=== PATIENT | female | born 1995 | race Caucasian/White ===

== ENCOUNTER 2020-01-25 15:00 | Inpatient (IN) | payer BC, OTHER ==
[2020-01-25] MEDS ORDERED: Sodium Chloride 0.9% 2.5 ML Syringe FLUSH PRN (16:30)
[2020-01-25] MEDS ORDERED: Sodium Chloride 0.9% 10 ML SDV IV PRN (16:30)
[2020-01-25] MEDS ORDERED: Nalbuphine 10 MG/1 ML Vial IVPUSH PRN (16:30)
[2020-01-25] MEDS ORDERED: Sodium Chloride 0.9% 10 ML Syringe FLUSH PRN (16:30)
[2020-01-25] MEDS ORDERED: Oxytocin/0.9 % Sodium Chloride 30 UNIT/500 ML BAG IV SCH ×2 (16:30→16:45)
[2020-01-25] MEDS ORDERED: Butorphanol 1 MG/ML SDV IVPUSH PRN (16:30)
[2020-01-25] MEDS ORDERED: Water For Irrigation,Sterile 1,000 ML Container IRR PRN (16:30)
[2020-01-25] MEDS ORDERED: Misoprostol 200 MCG Tab PO PRN (16:30)
[2020-01-25] MEDS ORDERED: Ondansetron 4 MG/2 ML SDV IVPUSH PRN (16:30)
[2020-01-25] MEDS ORDERED: Carboprost Tromethamine 250 MCG/1 ML Amp IM PRN (16:30)
[2020-01-25] MEDS ORDERED: Lidocaine 1% 50 ML MDV INJECT PRN (16:30)
[2020-01-25] MEDS ORDERED: Methylergonovine 0.2 MG/1 ML Amp IM PRN (16:30)
[2020-01-25] MEDS ORDERED: Tranexamic Acid 1,000 MG in Sodium Chloride 0.9% 100 ML IV PRN (16:30)
[2020-01-25 17:45] LABS: BLOOD UREA NITROGEN,BUN 14 mg/dL (7.0-18.0); CARBON DIOXIDE,CO2 18.2 mmol/L (21.0-32.0); CHLORIDE,CL 104 mmol/L (98-107); GLUCOSE RANDOM 111 mg/dL (74-106); POTASSIUM,K 3.7 mmol/L (3.5-5.1); SODIUM,NA 138 mmol/L (136-145)
[2020-01-25] MEDS: Lactated Ringers 1,000 ML IV SCH (17:59)
[2020-01-26] MEDS: Misoprostol 50 MCG (1/2 of 100 MCG) Tab VAG PRN ×2 (00:28→04:26)
[2020-01-26] MEDS ORDERED: Ropivacaine HCl/PF 100 ML ONE (07:05)
[2020-01-26] MEDS ORDERED: fentaNYL 100 MCG/2 ML SDV ONE (07:05)
--- NOTE | 2020-01-26 07:42 | PCM.PREANE ---
Preanesthetic Assessment - Procedure Proposed Procedure: MIR - Anesthesia/Transfusion/Family Hx Anesthesia History: Prior Anesthesia Without Reaction (Prior well-functioning epidural without complications, GA for wisdom teeth without anesthetic complications) Family History of Anesthesia Reaction: No Transfusion History: No Prior Transfusion(s) Additional History: PIH with current - Review of Systems General: No Symptoms Pulmonary: No Symptoms Cardiovascular: No Symptoms Gastrointestinal: No Symptoms Neurological: No Symptoms Other: Reports: None - Physical Assessment NPO Status Date: 01/25/20 (NPO except clear liquids following epidural) NPO Status Time: 19:00 (Last solid food 01/24 at 1900) Height: 1.7 m Weight: 78.471 kg ASA Class: 2 Mental Status: Alert & Oriented x3 Airway Class: Mallampati = 1 Dentition: Reports: Normal Dentition Thyro-Mental Finger Breadths: 3 Mouth Opening Finger Breadths: 4 ROM/Head Extension: Full Lungs: Normal Respiratory Effort Cardiovascular: Regular Rate, Regular Rhythm - Lab Values: Laboratory Last Values WBC 9.62 K/uL (4.0-11.0) 01/25/20 17:09 RBC 4.51 M/uL (4.30-5.90) 01/25/20 17:09 Hgb 13.8 g/dL (12.0-16.0) 01/25/20 17:09 Hct 41.1 % (36.0-46.0) 01/25/20 17:09 MCV 91.1 fL (80.0-98.0) 01/25/20 17:09 MCH 30.6 pg (27.0-32.0) 01/25/20 17:09 MCHC 33.6 g/dL (31.0-37.0) 01/25/20 17:09 RDW Std Deviation 44.2 fl (28.0-62.0) 01/25/20 17:09 RDW Coeff of Jessy 13 % (11.0-15.0) 01/25/20 17:09 Plt Count 183 K/uL (150-400) 01/25/20 17:09 MPV 12.00 fL (7.40-12.00) 01/25/20 17:09 Nucleated RBC % 0.0 /100WBC 01/25/20 17:09 Nucleated RBCs # 0 K/uL 01/25/20 17:09 Sodium 138 mmol/L (136-145) 01/25/20 17:09 Potassium 3.7 mmol/L (3.5-5.1) 01/25/20 17:09 Chloride 104 mmol/L (98-107) 01/25/20 17:09 Carbon Dioxide 18.2 mmol/L (21.0-32.0) L 01/25/20 17:09 BUN 14 mg/dL (7.0-18.0) 01/25/20 17:09 Creatinine 0.8 mg/dL (0.6-1.0) 01/25/20 17:09 Est Cr Clr Drug Dosing TNP 01/25/20 17:09 Estimated GFR (MDRD) > 60.0 ml/min 01/25/20 17:09 Glucose 111 mg/dL (74-106) H 01/25/20 17:09 Uric Acid 5.1 mg/dL (2.6-7.2) 01/25/20 17:09 Calcium 9.3 mg/dL (8.5-10.1) 01/25/20 17:09 Total Bilirubin 0.4 mg/dL (0.2-1.0) 01/25/20 17:09 AST 20 IU/L (15-37) 01/25/20 17:09 ALT 22 IU/L (14-63) 01/25/20 17:09 Alkaline Phosphatase 210 U/L (46-116) H 01/25/20 17:09 Total Protein 6.6 g/dL (6.4-8.2) 01/25/20 17:09 Albumin 3.0 g/dL (3.4-5.0) L 01/25/20 17:09 Globulin 3.6 g/dL (2.6-4.0) 01/25/20 17:09 Albumin/Globulin Ratio 0.8 (0.9-1.6) L 01/25/20 17:09 Urine Color YELLOW 01/25/20 17:30 Urine Appearance CLEAR 01/25/20 17:30 Urine pH 6.0 (5.0-8.0) 01/25/20 17:30 Ur Specific [place] 1.025 (1.001-1.035) 01/25/20 17:30 Urine Protein NEGATIVE mg/dL (NEGATIVE) 01/25/20 17:30 Urine Glucose (UA) 100 mg/dL (NEGATIVE) H 01/25/20 17:30 Urine Ketones NEGATIVE mg/dL (NEGATIVE) 01/25/20 17:30 Urine Occult Blood NEGATIVE (NEGATIVE) 01/25/20 17:30 Urine Nitrite NEGATIVE (NEGATIVE) 01/25/20 17:30 Urine Bilirubin NEGATIVE (NEGATIVE) 01/25/20 17:30 Urine Urobilinogen 0.2 EU/dL (<2.0) 01/25/20 17:30 Ur Leukocyte Esterase NEGATIVE (NEGATIVE) 01/25/20 17:30 Urine RBC 0-1 (0-2/HPF) 01/25/20 17:30 Urine WBC 0-1 (0-5/HPF) 01/25/20 17:30 Ur Epithelial Cells RARE (NONE-FEW) 01/25/20 17:30 Urine Bacteria RARE (NEGATIVE) 01/25/20 17:30 Ur Random Creatinine 110.7 mg/dL 01/25/20 17:30 U Random Total Protein 28.3 mg/dL (<11.9) H 01/25/20 17:30 Protein/Creatinin Ratio 0.3 01/25/20 17:30 SARS-CoV-2 RNA (DORA) NEGATIVE (NEGATIVE) 01/25/20 18:30 Blood Type B POSITIVE 01/25/20 17:09 Antibody Screen NEGATIVE 01/25/20 17:09 - Allergies Allergies/Adverse Reactions: Allergies Allergy/AdvReac Type Severity Reaction Status Date / Time amoxicillin Allergy Hives Verified 01/25/20 17:58 azithromycin [From Zithromax] Allergy Hives Verified 01/25/20 17:58 - Anesthesia Plan Free Text/Narrative:: Plan for MIR. Discussed risks, benefits, alternatives, placement, anesthesia coverage, DECKHAND, and use of epidural vs GA for c. section if need should arise. All questions answered and concerns addressed. 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 OB/BYN History: 2019 Childbirth - Infectious Disease History Infectious Disease History: Reports: None - Past Surgical History Other HEENT Surgeries/Procedures: [place] Teeth Extraction - SUBSTANCE USE Tobacco Use Status *Q: Never Tobacco User Second Hand Smoke Exposure: No Recreational Drug Use History: No - HOME MEDS Home Medications: Home Meds Vit No.124/Iron/Folic [ Vitamin Tablet] 1 tab PO DAILY 01/25/20 [History] - CURRENT (IN HOUSE) MEDS Current Meds: Current Medications Butorphanol Tartrate (Stadol) 1 mg IVPUSH Q1H PRN PRN Reason: Pain Carboprost Tromethamine (Hemabate Ds) 250 mcg IM ASDIRECTED PRN PRN Reason: Post Hemorrhage Oxytocin/Sodium Chloride (Oxytocin 30 Unit/500 Ml-Ns) 30 unit in 500 mls @ 999 mls/hr IV TITRATE MACI Tranexamic Acid 1,000 mg/ (Sodium Chloride) 110 mls @ 660 mls/hr IV ONETIME PRN PRN Reason: Bleeding Lactated Ringer's (Ringers, Lactated) 1,000 mls @ 150 mls/hr IV ASDIRECTED MACI Last Admin: 01/25/20 17:59 Dose: 150 mls/hr Documented by: Oxytocin/Sodium Chloride (Oxytocin 30 Unit/500 Ml-Ns) 30 unit in 500 mls @ 2 mls/hr IV TITRATE MACI; Protocol Last Infusion: 01/25/20 23:44 Dose: 0 munits/min, 0 mls/hr Documented by: Lidocaine HCl (Xylocaine 1%) 50 ml INJECT ONETIME PRN PRN Reason: Laceration repair Methylergonovine Maleate (Methergine) 0.2 mg IM ASDIRECTED PRN PRN Reason: Post Hemorrhage Misoprostol (Cytotec) 200 mcg PO ONETIME PRN PRN Reason: Post Hemorrhage Misoprostol (Cytotec) 25 mcg VAG Q4HR PRN PRN Reason: cervical ripening Last Admin: 01/26/20 04:26 Dose: 25 mcg Documented by: Ondansetron HCl (Zofran) 4 mg IVPUSH Q4H PRN PRN Reason: Nausea/Vomiting Sodium Chloride (Saline Flush) 10 ml FLUSH ASDIRECTED PRN PRN Reason: Keep Vein Open Sodium Chloride (Saline Flush) 2.5 ml FLUSH ASDIRECTED PRN PRN Reason: Keep Vein Open Sodium Chloride (Normal Saline) 10 ml IV ASDIRECTED PRN PRN Reason: IV Use Sterile Water (Sterile Water For Irrigation) 1,000 ml IRR ASDIRECTED PRN PRN Reason: delivery Discontinued Medications Fentanyl (Sublimaze) Confirm Administered Dose 200 mcg .ROUTE .STK-MED ONE Stop: 01/26/20 07:06 Ropivacaine (Naropin 0.2%) Confirm Administered Dose 100 mls @ as directed .ROUTE .STPlastio-MED ONE Stop: 01/26/20 07:06
--- NOTE | 2020-01-26 08:04 | PCM.SN.2 ---
- Free Text/Narrative Note: Anesthesia time [id number] 0643- Bedside with patient and S.O.. Plan for MIR. Discussed risks, benefits, alternatives, placement, anesthesia coverage, CNC TECHNICIAN, and use of epidural vs GA for c. section if need should arise. All questions answered and concerns addressed. 0651- Consent signed with RN witness 0654- Sitting position, "time out" performed, monitors on. Sterile technique employed, prep. with chlorhexidine and sterile drape. Localization with 1% lido. Attempt #1 successful at L3-4. DEBRA with saline at 6cm. 0656- Catheter threaded to 12cm without resistance or paresthesias. Negative to aspiration for both blood and CSF. 0658- Test dose given (negative). 0700- Sterile tegaderm dressing applied, cloth tape to secure. 0724- Cont. epidural drip of 0.2% ropivicaine with 2mcg/ml Fentanyl started at 8ml/hr with CNC TECHNICIAN option of 4 ml Q10 min, hourly lockout of 34ml. Clinician bolus of 6ml given at this time. Pt supine with HOB flat, VIVEK. 0754- Bedside to reassess, level of T7 acheived, pt c/o slight lightheadedness and chest/breathing feel "a little weird, but not short of breath." SBP 115, HR80-90. HOB elevated, epidural rate turned down to 6ml/hr. 0758- reassessed, level regressed to T9, pt reports relief from symptoms, VSS.
[2020-01-26] MEDS: Lactated Ringers 1,000 ML IV SCH (08:11)
--- NOTE | 2020-01-26 12:39 | OR ---
SURGEON: Kayla Osullivan M.D. DATE OF PROCEDURE: 01/26/2020 PREOPERATIVE DIAGNOSES: 1. 38 and 6 weeks' intrauterine . 2. Induction of labor for gestational hypertension. POSTOPERATIVE DIAGNOSES: 1. 38 and 6 weeks' intrauterine . 2. Induction of labor for gestational hypertension. PROCEDURE: Spontaneous vaginal delivery, first-degree midline laceration repaired. ANESTHESIA: Epidural. ESTIMATED BLOOD LOSS: 300 mL. COMPLICATIONS: None known. FINDINGS: Viable male. score of 8 at 1 minute and 9 at 5 minutes. Weight is pending. Spontaneous delivery, intact placenta, 3-vessel cord. DISPOSITION: to nursery, mom to LDRP. PROCEDURE IN DETAIL: Malika is a 24-year-old, G3, P1-0-1-1 at 38 and 6 weeks' gestational age who presented on the evening of 01/25/2020 after being evaluated in clinic and found to have elevated blood pressures in the 140s to 150s/90s. Given term gestation, gestational hypertension, induction of labor had been advised. The patient was admitted, routine labs were drawn as well PIH labs, LFTs, platelets, hemoglobin were stable. No protein in the urine. The patient denied headaches or visual changes. She was initiated on Pitocin, however, did not have much response to this. So after approximately 5 to 6 hours of this, progressed to Cytotec vaginally for 2 doses. At that time before starting that, she was 2 cm, 50% effaced, -3 station. The following morning, she was found to be 3 cm, 70% effaced, -2 station. Pitocin was initiated again. She underwent regional anesthesia in the form of epidural, became more comfortable. Category 1 heart tones. The blood pressures remained stable after epidural, were 120s/60s. Shortly before 10 a.m., amniotomy was performed, clear fluid was drained. She is group B beta strep negative. The patient began to progress more rapidly thereafter, and shortly before noon was found to be 9 cm, quickly progressing to complete, 100% effaced, +2 station. I was called for delivery. The patient was placed in modified dorsal lithotomy position and was prepped and draped in usual aseptic manner. With the next 3 contractions, was able to push, delivered infant's head atraumatically spontaneously, followed by anterior shoulder, posterior shoulder, and remainder of the body without difficulty. The infant's oropharynx and nares were bulb suctioned. Infant was handed off to his mother with attending nursing staff at bedside. After delayed cord was clamped x2 and cut, cord arterial, cord venous, cord blood sampling was obtained. Light pressure was applied. The placenta was delivered spontaneously intact. Vigorous fundal uterine massage was then applied while 30 units of Pitocin was delivered in 500 mL of IV fluid. Upon inspection of cervix, vaginal sidewall, and perineum, there was found to be a first-degree midline laceration repaired in the usual fashion with 0 Vicryl. Uterus remained firm. Hemostasis evident. Sponge count, instrument count, needle count were correct. The patient remained in LDRP. We will monitor blood pressures closely. to nursery. LATOSHA / DESI /[id number]
[2020-01-26] MEDS ORDERED: Witch Hazel Medicated Pads 40/Jar TOP ONE (14:39)
[2020-01-26] MEDS ORDERED: Benzocaine/Menthol 20%-0.5% Spray 78 GM Cannister ONE (14:39)
[2020-01-26] MEDS ORDERED: Witch Hazel Medicated Pads 40/Jar TOP PRN (15:35)
[2020-01-26] MEDS ORDERED: Docusate Sodium 100 MG Cap PO PRN (15:35)
[2020-01-26] MEDS ORDERED: Bisacodyl 10 MG Supp RECTAL PRN (15:35)
[2020-01-26] MEDS ORDERED: Ibuprofen 400 MG Tab PO PRN (15:35)
[2020-01-26] MEDS ORDERED: oxyCODONE 5 MG Tab PO PRN (15:35)
[2020-01-26] MEDS ORDERED: Benzocaine/Menthol 20%-0.5% Spray 78 GM Cannister TOP PRN (15:35)
[2020-01-26] MEDS ORDERED: Acetaminophen 500 MG Tab PO PRN ×2 (15:35)
[2020-01-26] MEDS ORDERED: Lanolin 100% Cream 7 GM Tube TOP PRN (15:35)
[2020-01-26] MEDS ORDERED: Ondansetron 4 MG/2 ML SDV IVPUSH PRN (15:42)
[2020-01-26] MEDS: Ibuprofen 800 MG Tab PO PRN (16:09)
[2020-01-26] MEDS ORDERED: diphenhydrAMINE 25 MG Cap PO STA (16:25)
[2020-01-26] MEDS ORDERED: diphenhydrAMINE 25 MG Cap ONE (16:39)
[2020-01-27] MEDS: Ibuprofen 800 MG Tab PO PRN (07:27)
--- NOTE | 2020-01-27 10:55 | PCM.PNPP ---
- General Info Date of Service: 01/27/20 Subjective Update: Doing well overall, lochia has dissipated signficantly. Denies any headaches or visual changes. Is ambulating without any difficulty and is going well. Functional Status: Reports: Pain Controlled, Tolerating Diet, Ambulating, Urinating - Review of Systems General: Reports: No Symptoms Pulmonary: Reports: No Symptoms Cardiovascular: Reports: No Symptoms Gastrointestinal: Reports: No Symptoms Genitourinary: Reports: No Symptoms Musculoskeletal: Reports: No Symptoms Skin: Reports: No Symptoms Neurological: Reports: No Symptoms Psychiatric: Reports: No Symptoms - General Info Date of Service: 01/27/20 - Patient Data Vital Signs - Most Recent: Last Vital Signs Temp 36.0 C L 01/27/20 07:15 Pulse 92 01/27/20 07:15 Resp 16 01/27/20 07:15 BP 119/59 L 01/27/20 07:15 Pulse Ox 98 01/27/20 07:15 Weight - Most Recent: 78.471 kg I&O - Last 24 Hours: Intake & Output 01/26/20 01/27/20 01/27/20 22:59 06:59 14:59 Output Total 700 Balance -700 Lab Results - Last 24 Hours: Laboratory Results - last 24 hr 01/26/20 01/26/20 01/27/20 Range/Units 12:27 12:27 05:30 Hgb 10.9 L (12.0-16.0) g/dL Hct 32.9 L (36.0-46.0) % Cord ABG pH 7.332 (7.18-7.38) Cord ABG Base Excess -5 (-10--2) Cord VBG pH 7.344 (7.25-7.45) Cord VBG Base Excess -5 (-10--2) Med Orders - Current: Current Medications Acetaminophen (Tylenol Extra Strength) 500 mg PO Q4H PRN PRN Reason: Pain Acetaminophen (Tylenol Extra Strength) 1,000 mg PO Q4H PRN PRN Reason: Pain Last Admin: 01/27/20 07:26 Dose: 1,000 mg Documented by: Benzocaine/Menthol (Dermoplast Pain Relief 20%-0.5% [place]) 78 gm TOP ASDIRECTED PRN PRN Reason: Perineal Comfort Measure Last Admin: 01/26/20 15:00 Dose: 1 can Documented by: Bisacodyl (Dulcolax) 10 mg RECTAL ONETIME PRN PRN Reason: Constipation Butorphanol Tartrate (Stadol) 1 mg IVPUSH Q1H PRN PRN Reason: Pain Docusate Sodium (Colace) 100 mg PO BID PRN PRN Reason: Constipation Emollient Ointment (Lansinoh Hpa) 0 gm TOP ASDIRECTED PRN PRN Reason: Sore Nipples Oxytocin/Sodium Chloride (Oxytocin 30 Unit/500 Ml-Ns) 30 unit in 500 mls @ 999 mls/hr IV TITRATE MACI Tranexamic Acid 1,000 mg/ (Sodium Chloride) 110 mls @ 660 mls/hr IV ONETIME PRN PRN Reason: Bleeding Lactated Ringer's (Ringers, Lactated) 1,000 mls @ 150 mls/hr IV ASDIRECTED MACI Last Infusion: 01/26/20 12:31 Dose: 0 mls/hr Documented by: Oxytocin/Sodium Chloride (Oxytocin 30 Unit/500 Ml-Ns) 30 unit in 500 mls @ 2 mls/hr IV TITRATE MACI; Protocol Last Infusion: 01/26/20 12:31 Dose: 999 munits/min, 999 mls/hr Documented by: Ibuprofen (Motrin) 400 mg PO Q4H PRN PRN Reason: Pain Ibuprofen (Motrin) 800 mg PO Q4H PRN PRN Reason: Pain Last Admin: 01/27/20 07:27 Dose: 800 mg Documented by: Lidocaine HCl (Xylocaine 1%) 50 ml INJECT ONETIME PRN PRN Reason: Laceration repair Methylergonovine Maleate (Methergine) 0.2 mg IM ASDIRECTED PRN PRN Reason: Post Hemorrhage Misoprostol (Cytotec) 200 mcg PO ONETIME PRN PRN Reason: Post Hemorrhage Last Admin: 01/26/20 15:05 Dose: 200 mcg Documented by: Misoprostol (Cytotec) 25 mcg VAG Q4HR PRN PRN Reason: cervical ripening Last Admin: 01/26/20 04:26 Dose: 25 mcg Documented by: Ondansetron HCl (Zofran) 4 mg IVPUSH Q6H PRN PRN Reason: Nausea/Vomiting Oxycodone HCl (Oxycodone) 5 - 10 mg PO Q2H PRN PRN Reason: Pain Sodium Chloride (Saline Flush) 10 ml FLUSH ASDIRECTED PRN PRN Reason: Keep Vein Open Sodium Chloride (Saline Flush) 2.5 ml FLUSH ASDIRECTED PRN PRN Reason: Keep Vein Open Sodium Chloride (Normal Saline) 10 ml IV ASDIRECTED PRN PRN Reason: IV Use Sterile Water (Sterile Water For Irrigation) 1,000 ml IRR ASDIRECTED PRN PRN Reason: delivery Dez Ornelas (Anne) 1 pad TOP ASDIRECTED PRN PRN Reason: comfort care Last Admin: 01/26/20 15:00 Dose: 1 pack Documented by: Discontinued Medications Benzocaine/Menthol (Dermoplast Pain Relief 20%-0.5% [place]) Confirm Administered Dose 78 gm .ROUTE .STK-MED ONE Stop: 01/26/20 14:40 Last Admin: 01/26/20 17:43 Dose: Not Given Documented by: Carboprost Tromethamine (Hemabate Ds) 250 mcg IM ASDIRECTED PRN PRN Reason: Post Hemorrhage Last Admin: 01/26/20 15:18 Dose: 250 mcg Documented by: Diphenhydramine HCl (Benadryl) 25 mg PO NOW STA Stop: 01/26/20 16:26 Last Admin: 01/26/20 16:37 Dose: 25 mg Documented by: Diphenhydramine HCl (Benadryl) Confirm Administered Dose 25 mg .ROUTE .STK-MED ONE Stop: 01/26/20 16:40 Last Admin: 01/26/20 17:43 Dose: Not Given Documented by: Fentanyl (Sublimaze) Confirm Administered Dose 200 mcg .ROUTE .STK-MED ONE Stop: 01/26/20 07:06 Last Admin: 01/26/20 19:35 Dose: Not Given Documented by: Ropivacaine (Naropin 0.2%) Confirm Administered Dose 100 mls @ as directed .ROUTE .STK-MED ONE Stop: 01/26/20 07:06 Last Admin: 01/26/20 19:35 Dose: Not Given Documented by: Ondansetron HCl (Zofran) 4 mg IVPUSH Q4H PRN PRN Reason: Nausea/Vomiting Dez Ornelas ([place]) Confirm Administered Dose 1 pad TOP .STK-MED ONE Stop: 01/26/20 14:40 Last Admin: 01/26/20 19:36 Dose: Not Given Documented by: - Interaction Support Person: - Recovery Exam Fundal Tone: Firm Fundal Level: 2 Fingerbreadths Below Umbilicus Fundal Placement: Left Lochia Amount: Small Lochia Color: Rubra/Red Perineum Description: Other (see below) Other Perinuem Description: 1st degree laceration. Episiotomy/Laceration: Approximated Bladder Status: Voiding Urinary Elimination: Voided - Exam General: Alert, Oriented Lungs: Normal Respiratory Effort Cardiovascular: Regular Rate, Regular Rhythm GI/Abdominal Exam: Normal Bowel Sounds, Soft, Non-Tender Extremities: Pedal Edema (trace). No: Girish's Sign Skin: Warm, Dry, Intact Neurological: No New Focal Deficit Psy/Mental Status: Alert, Normal Affect, Normal Mood - Problem List & Annotations (1) Vaginal delivery SNOMED Code(s): 363751535 Code(s): O80 - ENCOUNTER FOR FULL-TERM UNCOMPLICATED DELIVERY Status: Acute Current Visit: Yes - Problem List Review Problem List Initiated/Reviewed/Updated: Yes - My Orders Last 24 Hours: My Active Orders 01/26/20 Lunch Regular Diet [DIET] 01/26/20 15:35 Acetaminophen [Tylenol Extra Strength] 1,000 mg PO Q4H PRN Acetaminophen [Tylenol Extra Strength] 500 mg PO Q4H PRN Benzocaine/Menthol [Dermoplast Pain Relief 20%-0.5% [place]] 78 gm TOP ASDIRECTED PRN Docusate Sodium [Colace] 100 mg PO BID PRN Ibuprofen [Motrin] 400 mg PO Q4H PRN Ibuprofen [Motrin] 800 mg PO Q4H PRN Lanolin [Lansinoh HPA] See Dose Instructions TOP ASDIRECTED PRN bisacodyL [Dulcolax] 10 mg RECTAL ONETIME PRN oxyCODONE 5 - 10 mg PO Q2H PRN witch Syed [Tucks] 1 pad TOP ASDIRECTED PRN 01/26/20 15:36 Patient Status [ADT] Routine May Shower [RC] ASDIRECTED Up ad Becca [RC] ASDIRECTED Vital Signs [RC] PER UNIT ROUTINE Assess Lochia [WOMSER] Per Unit Routine Assess Uterine Involution [WOMSER] Per Unit Routine Peripheral IV Discontinue [OM.PC] Routine 01/26/20 15:42 Ondansetron [Zofran] 4 mg IVPUSH Q6H PRN 01/27/20 10:52 Ready for Discharge [RC] PER UNIT ROUTINE - Assessment Assessment:: PPD 1 status post Gestational HTN - Plan Plan:: Blood pressures remain normal. Has a cuff she can borrow from mother in law to monitor BPs at home. She agrees to call if >140/90. She is motivated to go home today. Discharge instructions reviewed. Follow up at [facility] in one week for BP check and PP visit. Discharge to home today.
--- NOTE | 2020-01-27 11:05 | PCM48HPAN ---
Post Anesthesia Note - EVALUATION WITHIN 48HRS OF ANESTHETIC Vital Signs in Normal Range: Yes Patient Participated in Evaluation: Yes Respiratory Function Stable: Yes Airway Patent: Yes Cardiovascular Function Stable: Yes Hydration Status Stable: Yes (Taking PO well) Pain Control Satisfactory: Yes (Reports pain well-controlled with pain level 1/10) Nausea and Vomiting Control Satisfactory: Yes (Denies N/V) Mental Status Recovered: Yes Vital Signs: Last Vital Signs Temp 36.0 C L 01/27/20 07:15 Pulse 92 01/27/20 07:15 Resp 16 01/27/20 07:15 BP 119/59 L 01/27/20 07:15 Pulse Ox 98 01/27/20 07:15 - COMMENTS/OBSERVATIONS Free Text/Narrative:: Ambulating independently, reports full return of strength and sensation to BLE.
--- NOTE | 2020-01-28 08:45 | PCM.PNPP ---
- General Info Date of Service: 01/28/20 Subjective Update: Doing well. Denies pain, lochia decreasing, denies preeclampsia symptoms. Tolerating oral intake. with some difficulty, but improving. Functional Status: Reports: Pain Controlled, Tolerating Diet, Ambulating, Urinating - Review of Systems General: Reports: No Symptoms HEENT: Reports: No Symptoms Pulmonary: Reports: No Symptoms Cardiovascular: Reports: No Symptoms Gastrointestinal: Reports: No Symptoms Genitourinary: Reports: No Symptoms Musculoskeletal: Reports: No Symptoms Skin: Reports: No Symptoms Neurological: Reports: No Symptoms Psychiatric: Reports: No Symptoms - Patient Data Vital Signs - Most Recent: Last Vital Signs Temp 36.3 C 01/28/20 08:00 Pulse 72 01/28/20 08:00 Resp 18 01/28/20 08:00 BP 119/68 01/28/20 08:00 Pulse Ox 97 01/28/20 08:00 Weight - Most Recent: 78.471 kg Med Orders - Current: Current Medications Acetaminophen (Tylenol Extra Strength) 500 mg PO Q4H PRN PRN Reason: Pain Acetaminophen (Tylenol Extra Strength) 1,000 mg PO Q4H PRN PRN Reason: Pain Last Admin: 01/27/20 07:26 Dose: 1,000 mg Documented by: Benzocaine/Menthol (Dermoplast Pain Relief 20%-0.5% Camp) 78 gm TOP ASDIRECTED PRN PRN Reason: Perineal Comfort Measure Last Admin: 01/26/20 15:00 Dose: 1 can Documented by: Bisacodyl (Dulcolax) 10 mg RECTAL ONETIME PRN PRN Reason: Constipation Butorphanol Tartrate (Stadol) 1 mg IVPUSH Q1H PRN PRN Reason: Pain Docusate Sodium (Colace) 100 mg PO BID PRN PRN Reason: Constipation Emollient Ointment (Lansinoh Hpa) 0 gm TOP ASDIRECTED PRN PRN Reason: Sore Nipples Oxytocin/Sodium Chloride (Oxytocin 30 Unit/500 Ml-Ns) 30 unit in 500 mls @ 999 mls/hr IV TITRATE MACI Tranexamic Acid 1,000 mg/ (Sodium Chloride) 110 mls @ 660 mls/hr IV ONETIME PRN PRN Reason: Bleeding Lactated Ringer's (Ringers, Lactated) 1,000 mls @ 150 mls/hr IV ASDIRECTED MACI Last Infusion: 01/26/20 12:31 Dose: 0 mls/hr Documented by: Oxytocin/Sodium Chloride (Oxytocin 30 Unit/500 Ml-Ns) 30 unit in 500 mls @ 2 mls/hr IV TITRATE MACI; Protocol Last Infusion: 01/26/20 12:31 Dose: 999 munits/min, 999 mls/hr Documented by: Ibuprofen (Motrin) 400 mg PO Q4H PRN PRN Reason: Pain Ibuprofen (Motrin) 800 mg PO Q4H PRN PRN Reason: Pain Last Admin: 01/27/20 07:27 Dose: 800 mg Documented by: Lidocaine HCl (Xylocaine 1%) 50 ml INJECT ONETIME PRN PRN Reason: Laceration repair Methylergonovine Maleate (Methergine) 0.2 mg IM ASDIRECTED PRN PRN Reason: Post Hemorrhage Misoprostol (Cytotec) 200 mcg PO ONETIME PRN PRN Reason: Post Hemorrhage Last Admin: 01/26/20 15:05 Dose: 200 mcg Documented by: Misoprostol (Cytotec) 25 mcg VAG Q4HR PRN PRN Reason: cervical ripening Last Admin: 01/26/20 04:26 Dose: 25 mcg Documented by: Ondansetron HCl (Zofran) 4 mg IVPUSH Q6H PRN PRN Reason: Nausea/Vomiting Oxycodone HCl (Oxycodone) 5 - 10 mg PO Q2H PRN PRN Reason: Pain Sodium Chloride (Saline Flush) 10 ml FLUSH ASDIRECTED PRN PRN Reason: Keep Vein Open Sodium Chloride (Saline Flush) 2.5 ml FLUSH ASDIRECTED PRN PRN Reason: Keep Vein Open Sodium Chloride (Normal Saline) 10 ml IV ASDIRECTED PRN PRN Reason: IV Use Sterile Water (Sterile Water For Irrigation) 1,000 ml IRR ASDIRECTED PRN PRN Reason: delivery Witch Ceci (Tucks) 1 pad TOP ASDIRECTED PRN PRN Reason: comfort care Last Admin: 01/26/20 15:00 Dose: 1 pack Documented by: Discontinued Medications Benzocaine/Menthol (Dermoplast Pain Relief 20%-0.5% Camp) Confirm Administered Dose 78 gm .ROUTE .STK-MED ONE Stop: 01/26/20 14:40 Last Admin: 01/26/20 17:43 Dose: Not Given Documented by: Carboprost Tromethamine (Hemabate Ds) 250 mcg IM ASDIRECTED PRN PRN Reason: Post Hemorrhage Last Admin: 01/26/20 15:18 Dose: 250 mcg Documented by: Diphenhydramine HCl (Benadryl) 25 mg PO NOW STA Stop: 01/26/20 16:26 Last Admin: 01/26/20 16:37 Dose: 25 mg Documented by: Diphenhydramine HCl (Benadryl) Confirm Administered Dose 25 mg .ROUTE .STK-MED ONE Stop: 01/26/20 16:40 Last Admin: 01/26/20 17:43 Dose: Not Given Documented by: Fentanyl (Sublimaze) Confirm Administered Dose 200 mcg .ROUTE .STK-MED ONE Stop: 01/26/20 07:06 Last Admin: 01/26/20 19:35 Dose: Not Given Documented by: Ropivacaine (Naropin 0.2%) Confirm Administered Dose 100 mls @ as directed .R OUTE .[employer]-MED ONE Stop: 01/26/20 07:06 Last Admin: 01/26/20 19:35 Dose: Not Given Documented by: Ondansetron HCl (Zofran) 4 mg IVPUSH Q4H PRN PRN Reason: Nausea/Vomiting Witch Ceci (Tucks) Confirm Administered Dose 1 pad TOP .STK-MED ONE Stop: 01/26/20 14:40 Last Admin: 01/26/20 19:36 Dose: Not Given Documented by: - Interaction Disposition, : [place] in Room with Family Interaction: Holding Infant Infant Feeding: Breastfed Infant; Nursed Well Support Person: - Recovery Exam Fundal Tone: Firm Fundal Level: 2 Fingerbreadths Below Umbilicus Fundal Placement: Midline Lochia Amount: Scant Lochia Color: Brownish Other Perinuem Description: 1st degree laceration. Bladder Status: Voiding Urinary Elimination: Voided - Exam General: Alert, Oriented Neck: Supple Lungs: Normal Respiratory Effort GI/Abdominal Exam: Soft, Non-Tender Extremities: Non-Tender Skin: Warm, Dry, Intact Neurological: No New Focal Deficit Psy/Mental Status: Alert, Normal Affect, Normal Mood - Problem List & Annotations (1) Vaginal delivery SNOMED Code(s): 485385841 Code(s): O80 - ENCOUNTER FOR FULL-TERM UNCOMPLICATED DELIVERY Status: Acute Current Visit: Yes - Problem List Review Problem List Initiated/Reviewed/Updated: Yes - My Orders Last 24 Hours: My Active Orders 01/28/20 08:43 Ready for Discharge [RC] PER UNIT ROUTINE - Assessment Assessment:: PPD 2 status post Gestational HTN - Plan Plan:: Blood pressures remain normal since delivery. Reviewed discharge instructions and preeclampsia precautions. All questions answered.
== END 2020-01-28 12:45 | disposition home or self-care (01) | DRG 560 ==
LOC: MW.OB 15:00 → OBSVTOIN 01-26 15:36 → MW.OB 01-26 17:17
PROVIDERS: ADMIT Obstetrics & Gynecology; ATTEND Obstetrics & Gynecology
PROC: 10E0XZZ Delivery of Products of Conception, External Approach (ICD-10-PCS; principal; 2020-01-26)
PROC: 0HQ9XZZ Repair Perineum Skin, External Approach (ICD-10-PCS; 2020-01-26)
PROC: 3E0P7VZ Introduction of Hormone into Female Reproductive, Via Natural or Artificial Opening (ICD-10-PCS; 2020-01-26)
PROC: 3E033VJ Introduction of Other Hormone into Peripheral Vein, Percutaneous Approach (ICD-10-PCS; 2020-01-26)
PROC: 3E0R3BZ Introduction of Anesthetic Agent into Spinal Canal, Percutaneous Approach (ICD-10-PCS; 2020-01-26)
PROC: 00HU33Z Insertion of Infusion Device into Spinal Canal, Percutaneous Approach (ICD-10-PCS; 2020-01-26)
DX: O13.4 Gestational [pregnancy-induced] hypertension without significant proteinuria, complicating childbirth (principal); Z3A.38 38 weeks gestation of pregnancy; Z37.0 Single live birth; Z20.828 Contact with and (suspected) exposure to other viral communicable diseases
CPT/HCPCS: 01967; 36415; 51702; 59025; 59409; 80053; 81001; 82570; 82803; 84156; 84550; 85014; 85018; 85027; 86592; 86850; 86900; 86901; A9270-GY; J2590; J2795; J3010; J7120; U0002

== ENCOUNTER 2020-09-03 17:05 | Emergency (ER) | payer BC ==
--- NOTE | 2020-09-03 18:42 | EDM.PDOC ---
ED HPI GENERAL MEDICAL PROBLEM - General Chief Complaint: Skin Complaint Stated Complaint: DR KLINE REFERRAL, FLUID POCKET IN BREAST Time Seen by Provider: 09/03/20 18:36 Source of Information: Reports: Patient History Limitations: Reports: No Limitations - History of Present Illness INITIAL COMMENTS - FREE TEXT/NARRATIVE: HISTORY AND PHYSICAL: History of present illness: Patient is a 24-year-old female who presents to the emergency room with complaints of a palpable mass to her right breast. She states she noticed this while breast-feeding her infant approximately 5 days ago and was started on Keflex. The palpable mass was not getting any smaller so Dr. Jones had ultrasounded it. Dr. Jones was concerned that she could have a fluid collection or abscess that the general surgeon should look at. Due to the extended weekend () coming up Dr Jones wanted the patient to come to the emergency room and have it evaluated. Patient states it has not been red or "angry looking" and only bothers her when the infant is attaching to latch on during breast-feeding. She continues to produce milk. Patient denies any fever, chills, headache, change in vision, syncope or near syncope. Denies any chest pain, back pain, shortness of breath or cough. Denies any abdominal pain, nausea, vomiting, diarrhea, constipation or dysuria. Has not noted any blood in urine or stool. Patient has been eating and drinking appropriately. Review of systems: As per history of present illness and below otherwise all systems reviewed and negative. Past medical history: As per history of present illness and as reviewed below otherwise noncontributory. Surgical history: As per history of present illness and as reviewed below otherwise noncontributory. Social history: See social history for further information Family history: As per history of present illness and as reviewed below otherwise noncontributory. Physical exam: General: Well developed and well nourished. Alert and orientated x 3. Nontoxic in appearance and in no acute distress. Vital signs are stable and have been reviewed by me. Nursing notes were reviewed. HEENT: Atraumatic, normocephalic, pupils equal and reactive bilaterally, negative for conjunctival pallor or scleral icterus, mucous membranes moist, TMs normal bilaterally, throat clear, neck supple, nontender, trachea midline. No drooling or trismus noted. No meningeal signs. No hot potato voice noted. Lungs: Clear to auscultation bilaterally. No wheezes, rales, or rhonchi. Chest nontender. Normal work of breathing, no accessory muscles used. Heart: S1S2, regular rate and rhythm without overt murmur, gallops, or rubs. No JVD. No peripheral edema Abdomen: Soft, nondistended, nontender. Skin: Patient does have a 9 mm circular firm palpable area to the right breast which is medial to the nipple. No redness, warmth or obvious skin disruption noted. No nipple drainage noted. Remaining skin is intact, warm, dry. No le sions or rashes noted. Hematologic: No petechiae or purpra. Mucosa appropriate color and normal nail bed color and refill. Extremities: Atraumatic, moves all extremities per self without difficulty or deficits, negative for cords or calf pain. Neurovascular unremarkable. Neuro: Awake, alert, oriented. Cranial nerves II through XII unremarkable. Cerebellum unremarkable. Motor and sensory unremarkable throughout. Exam nonfocal. Psychiatric: Mood and affect are appropriate. Normal thought process. Answering questions appropriately. Notes: *This patient was seen and evaluated during the 2019 SARS-CoV-2 novel coronavirus pandemic period. Community viral transmission is ongoing at time of this encounter and the emergency department is operating under pandemic response procedures. Dr. Richards happened to be on the floor for other reasons. He was agreeable to assess the questionable abscess. He would like the patient to stay on the Keflex and see him in the office tomorrow to discuss treatment options. They were reviewed and discussed and I&D versus continuing to monitor and extend the Keflex. At this time patient is nontoxic appearing and the skin itself does not appear infected. Questioning a blocked milk duct. Patient is agreeable to plan of care. I have talked with the patient about today's findings, in addition to providing specific details for plan of care. Reassessment at the time of disposition demonstrates that the patient is in no acute distress. The patient is stable for discharge, counseling was provided and we discussed in great detail signs and symptoms that would prompt them to return to the Emergency Department. Medication, follow up and supportive care measures were reviewed and discussed. Voices understanding and is agreeable to plan of care. Denies any further questions or concerns at this time. Diagnostics: None Therapeutics: None Prescription: None Impression: Breast mass Plan: 1. You were evaluated today on an emergent basis. Dr. Richards was able to evaluate the area in question and would like you to call his office tomorrow for further evaluation and discussing treatment options. 2. You can alternate Tylenol and ibuprofen as needed for pain and fever management. 3. If your symptoms should worsen, new symptoms develop or any of the signs and symptoms we discussed should arise please return to the emergency room or call [phone] (if needed). Definitive disposition and diagnosis as appropriate pending reevaluation and review of above. 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 ED EXAM, SKIN/RASH Exam: See Below (See dictation) Departure - Departure Time of Disposition: 18:43 Disposition: Home, Self-Care 01 Clinical Impression: Breast mass - Discharge Information Referrals: PCP,None [Primary Care Provider] - Additional Instructions: The following information is given to patients seen in the emergency department who are being discharged to home. This information is to outline your options for follow-up care. We provide all patients seen in our emergency department with a follow-up referral. The need for follow-up, as well as the timing and circumstances, are variable depending upon the specifics of your emergency department visit. If you don't have a primary care physician on staff, we will provide you with a referral. We always advise you to contact your personal physician following an emergency department visit to inform them of the circumstance of the visit and for follow-up with them and/or the need for any referrals to a consulting specialist. The emergency department will also refer you to a specialist when appropriate. This referral assures that you have the opportunity for follow-up care with a specialist. All of these measure are taken in an effort to provide you with optimal care, which includes your follow-up. Under all circumstances we always encourage you to contact your private physician who remains a resource for coordinating your care. When calling for follow-up care, please make the office aware that this follow-up is from your recent emergency room visit. If for any reason you are refused follow-up, please contact the Emergency Department at and asked to speak to the emergency department charge nurse. Primary Care [address] [place] [id number] [address] Thank you for choosing the [facility] emergency department in [place] for your medical needs today. It was a pleasure caring for you. Today you were seen in the emergency department for breast mass. 1. You were evaluated today on an emergent basis. Dr. Richards was able to evaluate the area in question and would like you to call his office tomorrow for further evaluation and discussing treatment options. 2. You can alternate Tylenol and ibuprofen as needed for pain and fever management. 3. If your symptoms should worsen, new symptoms develop or any of the signs and symptoms we discussed should arise please return to the emergency room or call [phone] (if needed).
== END 2020-09-03 18:36 | disposition home or self-care (01) ==
LOC: MW.ED 17:05
DX: N63.0 Unspecified lump in unspecified breast (principal); Z88.0 Allergy status to penicillin; Z88.1 Allergy status to other antibiotic agents; Z88.8 Allergy status to other drugs, medicaments and biological substances
CPT/HCPCS: 99283

== ENCOUNTER 2021-06-27 08:06 | Inpatient (IN) | payer BC ==
[2021-06-27] MEDS ORDERED: Methylergonovine 0.2 MG/1 ML Amp IM PRN (08:20)
[2021-06-27] MEDS ORDERED: Water For Irrigation,Sterile 1,000 ML Container IRR PRN (08:20)
[2021-06-27] MEDS ORDERED: Misoprostol 200 MCG Tab PO PRN (08:20)
[2021-06-27] MEDS ORDERED: Sodium Chloride 0.9% 2.5 ML Syringe FLUSH PRN (08:20)
[2021-06-27] MEDS ORDERED: Tranexamic Acid 1,000 MG in Sodium Chloride 0.9% 100 ML IV PRN ×2 (08:20→22:14)
[2021-06-27] MEDS ORDERED: Butorphanol 1 MG/ML SDV IVPUSH PRN (08:20)
[2021-06-27] MEDS ORDERED: Ondansetron 4 MG/2 ML SDV IVPUSH PRN (08:20)
[2021-06-27] MEDS ORDERED: Lidocaine 1% 50 ML MDV INJECT PRN (08:20)
[2021-06-27] MEDS ORDERED: Misoprostol 25 MCG (1/4 of 100 MCG) Tab VAG PRN ×2 (08:20)
[2021-06-27] MEDS ORDERED: Sodium Chloride 0.9% 20 ML SDV IV PRN (08:20)
[2021-06-27] MEDS ORDERED: Sodium Chloride 0.9% 10 ML Syringe FLUSH PRN (08:20)
[2021-06-27] MEDS ORDERED: Terbutaline 1 MG/ML SDV SUBCUT PRN (08:20)
[2021-06-27] MEDS ORDERED: Carboprost Tromethamine 250 MCG/1 ML Amp IM PRN (08:20)
[2021-06-27] MEDS ORDERED: Oxytocin/0.9 % Sodium Chloride 30 UNIT/500 ML BAG IV SCH ×2 (08:30)
[2021-06-27] MEDS ORDERED: Lactated Ringers 1,000 ML IV SCH (08:30)
[2021-06-27] MEDS ORDERED: ePHEDrine 50 MG/ML SDV IVPUSH PRN ×2 (13:53)
[2021-06-27] MEDS ORDERED: Ropivacaine 200 MG in Premix Bag 1 BAG EPIDUR SCH (14:00)
[2021-06-27] MEDS ORDERED: Bisacodyl 10 MG Supp RECTAL PRN (22:14)
[2021-06-27] MEDS ORDERED: Lanolin 100% Cream 7 GM Tube TOP PRN (22:14)
[2021-06-27] MEDS ORDERED: Ibuprofen 400 MG Tab PO PRN (22:14)
[2021-06-27] MEDS ORDERED: Misoprostol 200 MCG Tab RECTAL PRN (22:14)
[2021-06-27] MEDS ORDERED: Acetaminophen 500 MG Tab PO PRN (22:14)
[2021-06-27] MEDS ORDERED: Benzocaine/Menthol 20%-0.5% Spray 78 GM Cannister TOP PRN (22:14)
[2021-06-27] MEDS ORDERED: Witch Hazel Medicated Pads 40/Jar TOP PRN (22:14)
[2021-06-27] MEDS: Ibuprofen 800 MG Tab PO PRN (22:45)
[2021-06-28] MEDS: Ibuprofen 800 MG Tab PO PRN ×2 (04:31→15:05)
[2021-06-28] MEDS: Acetaminophen 500 MG Tab PO PRN ×2 (07:28→20:23)
[2021-06-28] MEDS: Docusate Sodium 100 MG Cap PO PRN (15:05)
[2021-06-29] MEDS: Ibuprofen 800 MG Tab PO PRN ×2 (03:28→16:09)
[2021-06-29] MEDS: Docusate Sodium 100 MG Cap PO PRN (11:11)
[2021-06-29] MEDS: Acetaminophen 500 MG Tab PO PRN (11:12)
== END 2021-06-29 17:00 | disposition home or self-care (01) | DRG 560 ==
LOC: MW.OBCHECK 08:06 → MW.OB 08:07 → MW.OBCHECK 08:20 → MW.OB 08:21 → OBSVTOIN 21:51 → MW.OB 06-28 01:01
PROVIDERS: ADMIT Obstetrics & Gynecology; ATTEND Obstetrics & Gynecology
PROC: 10E0XZZ Delivery of Products of Conception, External Approach (ICD-10-PCS; principal; 2021-06-27)
PROC: 10907ZC Drainage of Amniotic Fluid, Therapeutic from Products of Conception, Via Natural or Artificial Opening (ICD-10-PCS; 2021-06-27)
PROC: 3E0P7VZ Introduction of Hormone into Female Reproductive, Via Natural or Artificial Opening (ICD-10-PCS; 2021-06-27)
PROC: 3E033VJ Introduction of Other Hormone into Peripheral Vein, Percutaneous Approach (ICD-10-PCS; 2021-06-27)
PROC: 3E0R3BZ Introduction of Anesthetic Agent into Spinal Canal, Percutaneous Approach (ICD-10-PCS; 2021-06-27)
PROC: 00HU33Z Insertion of Infusion Device into Spinal Canal, Percutaneous Approach (ICD-10-PCS; 2021-06-27)
DX: O13.4 Gestational [pregnancy-induced] hypertension without significant proteinuria, complicating childbirth (principal); Z37.0 Single live birth; O98.52 Other viral diseases complicating childbirth; U07.1 COVID-19; Z3A.37 37 weeks gestation of pregnancy
CPT/HCPCS: 01967; 36415; 51702; 59025; 59409; 82803; 85014; 85018; 85027; 86592; 86850; 86900; 86901; 87086; A9270-GY; J2405; J2590; J7120; U0002

== ENCOUNTER 2024-06-28 13:48 | Inpatient (IN) | payer BC ==
[2024-06-28] MEDS ORDERED: Terbutaline 1 MG/ML SDV SUBCUT PRN (14:53)
[2024-06-28] MEDS ORDERED: Lidocaine 1% 50 ML MDV INJECT PRN (14:56)
[2024-06-28] MEDS ORDERED: Butorphanol 2 MG/ML SDV IVPUSH PRN (14:56)
[2024-06-28] MEDS ORDERED: Sodium Chloride 0.9% 10 ML Syringe FLUSH PRN (14:56)
[2024-06-28] MEDS ORDERED: Methylergonovine 0.2 MG/1 ML Amp IM PRN (14:56)
[2024-06-28] MEDS ORDERED: Water For Irrigation,Sterile 1,000 ML Container IRR PRN (14:56)
[2024-06-28] MEDS ORDERED: Carboprost Tromethamine 250 MCG/1 mL Vial IM PRN (14:56)
[2024-06-28] MEDS ORDERED: Sodium Chloride 0.9% 2.5 ML Syringe FLUSH PRN (14:56)
[2024-06-28] MEDS ORDERED: Sodium Chloride 0.9% 20 ML SDV IV PRN (14:56)
[2024-06-28 15:09] LABS: HEMATOCRIT 36.9 % (37.0-47.0); HEMOGLOBIN 13.1 g/dL (12.0-16.0); MEAN CORPUSCULAR HEMOGLOBIN 32.2 pg (28.0-32.0); MEAN CORPUSCULAR HGB CONC 35.5 g/dL (32.0-36.0); MEAN CORPUSCULAR VOLUME 90.7 fL (83.0-99.0); MEAN PLATELET VOLUME 11.6 fL (9.4-12.3); PLATELET COUNT,PLT 165 K/uL (150-400); RED BLOOD CELL COUNT 4.07 M/uL (4.10-5.30); WHITE BLOOD CELL COUNT,WBC 7.61 K/uL (3.9-11.3)
[2024-06-28 16:09] LABS: A/G RATIO 0.9 (0.9-1.6); ALBUMIN 2.7 g/dL (3.4-5.0); BILIRUBIN TOTAL 0.5 mg/dL (0.2-1.0); CALCIUM 8.9 mg/dL (8.5-10.1); CARBON DIOXIDE,CO2 21.5 mmol/L (21.0-32.0); CREATININE 0.9 mg/dL (0.6-1.0); EST CRCL DRUG DOSING (CG) 87.12 mL/min; PROTEIN TOTAL,TP 5.8 g/dL (6.4-8.2); URIC ACID 6.1 mg/dL (2.6-7.2)
[2024-06-29] MEDS: Lactated Ringers 1,000 ML IV SCH (10:30)
[2024-06-29] MEDS: Misoprostol 25 MCG (1/4 of 100 MCG) Tab VAG PRN (10:50)
[2024-06-29] MEDS: Oxytocin/0.9 % Sodium Chloride 30 UNIT/500 ML BAG IV SCH (21:04)
[2024-06-30] MEDS ORDERED: ePHEDrine 50 MG/ML SDV IM PRN (00:22)
[2024-06-30] MEDS ORDERED: Phenylephrine HCl In 0.9% NaCl 1 MG/10 ML Syringe IVPUSH PRN (00:22)
[2024-06-30] MEDS ORDERED: ePHEDrine 50 MG/ML SDV IVPUSH PRN (00:22)
[2024-06-30] MEDS ORDERED: dexmedeTOMIDine HCl 200 MCG/2 ML SDV EPIDUR SCH (00:30)
[2024-06-30] MEDS: Phenylephrine HCl In 0.9% NaCl 1 MG/10 ML Syringe ONE (01:49)
[2024-06-30] MEDS: Bupivacaine 0.5% 10 ML SDV INJECT ONE (01:49)
[2024-06-30] MEDS: Bupivacaine 0.5% 10 ML SDV ONE (01:49)
[2024-06-30] MEDS: Ropivacaine HCl/PF 200 ML ONE (01:49)
[2024-06-30] MEDS: Ropivacaine HCl/PF 400 MG in Premix Bag 1 BAG EPIDUR SCH (01:52)
[2024-06-30] MEDS: Ondansetron 4 MG/2 ML SDV IVPUSH PRN (05:13)
[2024-06-30] MEDS: Ondansetron 4 MG/2 ML SDV ONE (05:18)
[2024-06-30] MEDS: Oxytocin/0.9 % Sodium Chloride 30 UNIT/500 ML BAG IV SCH (09:10)
[2024-06-30] MEDS: Tranexamic Acid in NACL,ISO-OS 1,000 MG in Premix Bag 1 BAG IV ONE (09:17)
[2024-06-30] MEDS ORDERED: Aluminum Hydroxide/Magnesium Hydroxide/Simethicone Susp 30 ML Cup PO PRN (09:29)
[2024-06-30] MEDS ORDERED: Simethicone 80 MG Tab.Chew PO PRN (09:29)
[2024-06-30 10:41] LABS: PH,UMBILICAL ARTERIAL 7.2 (7.18-7.38); PH,UMBILICAL VENOUS 7.34 (7.25-7.45)
[2024-06-30] MEDS: Ibuprofen 800 MG Tab PO PRN (11:15)
[2024-06-30] MEDS: Benzocaine/Menthol 20%-0.5% Spray 78 GM Cannister TOP PRN (11:15)
[2024-06-30] MEDS: Docusate Sodium 100 MG Cap PO PRN ×2 (11:15→20:32)
[2024-06-30] MEDS: Lanolin 100% Cream 7 GM Tube TOP PRN (11:15)
[2024-06-30] MEDS: Acetaminophen 500 MG Tab PO PRN ×2 (11:15→15:53)
[2024-06-30] MEDS: Witch Hazel Medicated Pads 40/Jar TOP PRN (11:16)
[2024-06-30] MEDS ORDERED: Lanolin 100% Cream 7 GM Tube TOP PRN (12:36)
[2024-06-30] MEDS ORDERED: Benzocaine/Menthol 20%-0.5% Spray 78 GM Cannister TOP PRN (12:36)
[2024-06-30] MEDS ORDERED: Ibuprofen 800 MG Tab PO PRN (12:36)
[2024-06-30] MEDS ORDERED: Witch Hazel Medicated Pads 40/Jar TOP PRN (12:36)
[2024-06-30] MEDS ORDERED: oxyCODONE 5 MG Tab PO PRN (12:36)
[2024-07-01 06:14] LABS: BASOPHILS ABSOLUTE AUTO 0.04 K/uL (0.00-0.20); BASOPHILS PERCENT AUTO 0.4 % (0.0-1.0); EOSINOPHILS ABSOLUTE AUTO 0.18 K/uL (0.00-0.45); EOSINOPHILS PERCENT AUTO 1.6 % (0.0-6.0); HEMATOCRIT 34.2 % (37.0-47.0); HEMOGLOBIN 11.9 g/dL (12.0-16.0); IMMATURE GRAN ABSOLUTE AUTO 0.05 K/uL (0.00-0.05); IMMATURE GRAN PERCENT AUTO 0.4 % (0.0-0.4); MEAN CORPUSCULAR HEMOGLOBIN 31.9 pg (28.0-32.0); MEAN CORPUSCULAR HGB CONC 34.8 g/dL (32.0-36.0); MEAN CORPUSCULAR VOLUME 91.7 fL (83.0-99.0); MONOCYTES ABSOLUTE AUTO 0.82 K/uL (0.00-0.80); MONOCYTES PERCENT AUTO 7.3 % (0.0-8.0); NEUTROPHILS ABSOLUTE AUTO 7.47 K/uL (1.80-7.70); NEUTROPHILS PERCENT AUTO 66.3 % (41.0-71.0); PLATELET COUNT,PLT 152 K/uL (150-400); RED BLOOD CELL COUNT 3.73 M/uL (4.10-5.30); WHITE BLOOD CELL COUNT,WBC 11.26 K/uL (3.9-11.3)
[2024-07-01 11:54] LABS: A/G RATIO 0.8 (0.9-1.6); ALBUMIN 2.4 g/dL (3.4-5.0); BILIRUBIN TOTAL 0.3 mg/dL (0.2-1.0); CALCIUM 9.5 mg/dL (8.5-10.1); CREATININE 0.7 mg/dL (0.6-1.0); EST CRCL DRUG DOSING (CG) 112.01 mL/min; POTASSIUM,K 4.3 mmol/L (3.5-5.1); PROTEIN TOTAL,TP 5.6 g/dL (6.4-8.2)
== END 2024-07-01 14:29 | disposition home or self-care (01) | DRG 560 ==
LOC: MW.OB 13:48 → INTOOBSV 13:48 → OBSVTOIN 13:48 → MW.OB 06-30 11:54
PROVIDERS: ADMIT Obstetrics & Gynecology; ATTEND Obstetrics & Gynecology
PROC: 10E0XZZ Delivery of Products of Conception, External Approach (ICD-10-PCS; principal; 2024-06-30)
PROC: 3E033VJ Introduction of Other Hormone into Peripheral Vein, Percutaneous Approach (ICD-10-PCS; 2024-06-30)
PROC: 3E0R3BZ Introduction of Anesthetic Agent into Spinal Canal, Percutaneous Approach (ICD-10-PCS; 2024-06-30)
PROC: 00HU33Z Insertion of Infusion Device into Spinal Canal, Percutaneous Approach (ICD-10-PCS; 2024-06-30)
DX: O48.0 Post-term pregnancy (principal); Z37.0 Single live birth; O13.4 Gestational [pregnancy-induced] hypertension without significant proteinuria, complicating childbirth; O69.81X0 Labor and delivery complicated by cord around neck, without compression, not applicable or unspecified; O77.0 Labor and delivery complicated by meconium in amniotic fluid; Z3A.40 40 weeks gestation of pregnancy
CPT/HCPCS: 36415; 51702; 59025; 59409; 80053; 82803; 84550; 85025; 85027; 86592; 86850; 86900; 86901; A9270-GY; J0665; J2405; J2590; J2795; J7120